=== PATIENT | female | born 1955 | race Caucasian/White ===

== ENCOUNTER 2020-05-31 04:44 | Inpatient (IN) | payer MEDICARE, MEDICAID ==
[~2020-05-31] VITALS: Ht 167.6 cm; Wt 51.1 kg
[2020-05-31] VITALS (9 sets, daily range): BP systolic 130–190; BP diastolic 65–90
[2020-05-31 05:31] LABS: BASO % 0.4 % (0.0-1.0); EOS % 0.1 % (0.0-3.0); HEMATOCRIT 46.1 % (36.0-47.0); HEMOGLOBIN 15.6 g/dl (12.0-15.5); LYMPH # 1.5 10^3/uL (1.5-5.0); LYMPH % 14.3 % (24.0-44.0); MEAN CORPUSCULAR HEMOGLOBIN 29.1 pg (27.0-33.0); MEAN CORPUSCULAR HGB CONC 33.8 g/dl (32.0-36.5); MONO # 0.5 10^3/uL (0.0-0.8); MONO % 4.4 % (0.0-5.0); NEUTROPHILS # 8.5 10^3/uL (1.5-8.5); NEUTROPHILS % 80.5 % (36.0-66.0); PLATELET COUNT, AUTOMATED 316 10^3/uL (150-450); RED BLOOD COUNT 5.36 10^6/uL (4.00-5.40); WHITE BLOOD COUNT 10.5 10^3/uL (4.0-10.0)
[2020-05-31 05:58] LABS: ALBUMIN 3.7 GM/DL (3.2-5.2); ALT/SGPT 28 U/L (12-78); BILIRUBIN,DIRECT 0.2 MG/DL (0.0-0.2); BILIRUBIN,TOTAL 0.6 MG/DL (0.2-1.0); BLOOD UREA NITROGEN 11 MG/DL (7-18); CALCIUM LEVEL 9.2 MG/DL (8.8-10.2); CARBON DIOXIDE LEVEL 22 MEQ/L (21-32); CHLORIDE LEVEL 105 MEQ/L (98-107); CREATININE FOR GFR 0.91 MG/DL (0.55-1.30); GLOMERULAR FILTRATION RATE > 60.0 (>45); GLUCOSE, FASTING 146 MG/DL (70-100); LIPASE 74 U/L (73-393); POTASSIUM SERUM 3.6 MEQ/L (3.5-5.1); SODIUM LEVEL 132 MEQ/L (136-145); TOTAL PROTEIN 7.8 GM/DL (6.4-8.2)
[2020-05-31] MEDS ORDERED: MORPHINE 4 MG/ML 1ML VIAL/SYRINGE (J2270) IV PRN (06:00)
[2020-05-31] MEDS ORDERED: ONDANSETRON 4MG/2ML VIAL IV ONE (06:00)
[2020-05-31] MEDS ORDERED: GASTROGRAFIN SOLUTION 30ML (Q9963) As Ordered ONE (06:19)
[2020-05-31] MEDS: GASTROGRAFIN SOLUTION 30ML PO SCH ×2 (06:20→06:50)
[2020-05-31] MEDS ORDERED: LORazepam 2 MG/ML VIAL IV STA (06:24)
[2020-05-31] MEDS ORDERED: LORazepam 2 MG/ML VIAL As Ordered ONE (06:27)
[2020-05-31] MEDS ORDERED: ISOVUE-370 76% 100ML VIAL As Ordered ONE (07:57)
[2020-05-31] MEDS ORDERED: hydrALAZINE 20MG/ML 1ML VIAL (J0360 PER 20MG) IV STA (08:37)
[2020-05-31] MEDS ORDERED: ASPI81TA86 PO (09:46)
[2020-05-31] MEDS ORDERED: ASPIRIN 81 MG ENTERIC TAB PO PRN (10:00)
[2020-05-31] MEDS: amLODIPine 5 MG TAB PO SCH (14:09)
[2020-05-31] MEDS ORDERED: ceFAZolin SOD 2 GM in IV 1 EA IV ONE (16:00)
--- NOTE | 2020-05-31 16:04 | HPEPDOC ---
General Date of Admission May 31, 2020 at 09:09 Date of Service: May 31, 2020 Chief Complaint The patient is a 64-year-old female admitted with a reason for visit of Hydronephrosis. Source: Patient Exam Limitations: No limitations Timing/Duration: 1-3 hours Severity: Moderate Associated Symptoms: Weakness History of Present Illness Patient is a 64-year-old female with no past medical history presented to the ED with a chief complaint of left flank pain that started earlier in the day. she denied having similar symptoms before and this is her first episode. She reports pain to be continuous and non-radiating. no associated chest pain or shortness of breath. No fever nausea vomiting. She denied any symptoms of dysuria at home. no alleviating or worsening factors. ED course: CT abdomen and pelvis showed left hydronephrois with urethral stricture. Findings reviewed with Urology who recommended Lasix nephrogram with plans for likely stent placement. Patient was also found to be significantly hypertensive and One dose of hydralazine was given. Home Medications Scheduled PRN Aspirin (Aspir 81) 81 Mg Tablet.dr, 81 MG PO DAILY PRN for PAIN, (Reported) Allergies Coded Allergies: pentazocine (Verified Allergy, Intermediate, 05/31/20) PSYCHOTIC EPISODES Past Medical History Medical History no previous diagnosed conditions - no cardiac hx Surgical History none Family History Significant Family History: Noncontributory Social History * Smoker: current smoker, less than 1 pack/day Alcohol: sober Drugs: denies Recent Travel/Sick Contacts: Denies: Recent travel, Recent sick contacts A-FIB/CHADSVASC A-FIB History Current/History of A-Fib/PAF?: No Current PO Anticoag Therapy: No Review of Systems Constitutional: Denies: Chills, Fever, Night Sweats Eyes: Denies: Pain, Vision change ENT: Denies: Head Aches, Ear Pain, Dysphagia Skin: Denies: Rash, Lesions, Breakdown Pulmonary: Denies: Dyspnea, Cough Cardiovascular: Denies: Chest Pain, Palpitations, Orthopnea, Paroxysmal Noc. Dyspnea, Lt Headedness Gastrointestinal: Denies: Nausea, Vomiting, Abdominal Pain, Diarrhea Genitourinary: Denies: Dysuria, Frequency, Incontinence, Retention Hematologic: Denies: Bruising, Bleeding Excessively Musculoskeletal: Reports: Back Pain; Denies: Neck Pain, Joint Pain, Muscle Pain, Spasms Neurological: Denies: Weakness, Numbness, Change in speech, Confusion Psych: Reports: Mood Normal; Denies: Depression, Memory Issues Physical Examination General Exam: Positive: Alert, Cooperative, No Acute Distress Eye Exam: Positive: PERRLA, Conjunctiva & lids normal, EOMI; Negative: Sclera icteric ENT Exam: Positive: Atraumatic, Mucous membr. moist/pink, Pharynx Normal Neck Exam: Positive: Supple; Negative: JVD, thyromegaly Chest Exam: Positive: Clear to auscultation, Normal air movement Heart Exam: Positive: Rate Normal, Regular Rhythm, Normal S1, Normal S2; Negative: Murmurs, Rubs Telemetry: Positive: No significant arrhythmia Abdomen Exam: Positive: Normal bowel sounds, Soft; Negative: Tenderness, Hepatospenomegaly Extremity Exam: Positive: Normal pulses; Negative: Clubbing, Cyanosis, Edema Skin Exam: Positive: Nl turgor and temperature; Negative: Breakdown, Lesion Neuro Exam: Positive: Normal Gait, Normal Speech, Cranial Nerves 3-12 NL, Reflexes 2+ Psych Exam: Positive: Mental status NL, Mood NL, Oriented x 3 Vital Signs Vital Signs Date Time Temp Pulse Resp B/P (MAP) Pulse Ox O2 Delivery O2 Flow Rate FiO2 05/31/20 15:00 84 33 185/87 (119) 98 Room Air 05/31/20 14:30 98.0 Laboratory Data Labs 24H Laboratory Tests 2 05/31/20 05:24: Immature Granulocyte % (Auto) 0.3, Neutrophils (%) (Auto) 80.5H, Lymphocytes (%) (Auto) 14.3L, Monocytes (%) (Auto) 4.4, Eosinophils (%) (Auto) 0.1, Basophils (%) (Auto) 0.4, Neutrophils # (Auto) 8.5, Lymphocytes # (Auto) 1.5, Monocytes # (Auto) 0.5, Eosinophils # (Auto) 0.0, Basophils # (Auto) 0.0, Nucleated Red Blood Cells % (auto) 0.0, Anion Gap 5L, Glomerular Filtration Rate > 60.0, Ca lcium Level 9.2, Total Bilirubin 0.6, Direct Bilirubin 0.2, Aspartate Amino Transf (AST/SGOT) 30, Alanine Aminotransferase (ALT/SGPT) 28, Alkaline Phosphatase 105, Total Protein 7.8, Albumin 3.7, Albumin/Globulin Ratio 0.9L, Lipase 74 05/31/20 13:25: Coronavirus (COVID-19)(PCR) NEGATIVE 05/31/20 14:30: Urine Color STRAW, Urine Appearance CLEAR, Urine pH 7.0, Urine Specific [place] 1.030, Urine Protein 1+H, Urine Glucose (UA) NEGATIVE, Urine Ketones TRACEH, Urine Blood 1+H, Urine Nitrite NEGATIVE, Urine Bilirubin NEGATIVE, Urine Urobilinogen 0.2, Urine Leukocyte Esterase NEGATIVE, Urine WBC (Auto) 1, Urine RBC (Auto) 10H, Urine Hyaline Casts (Auto) 1, Urine Bacteria (Auto) NEGATIVE, Urine Squamous Epithelial Cells 1, Urine Mucus (Auto) SMALL, Urine Sperm (Auto) CBC/BMP Laboratory Tests 05/31/20 05:24 Plan / VTE VTE Prophylaxis Ordered?: Yes Plan Plan 1) left urethral stricture: - urology to place stent later today 2) Hypertensive Urgency - denied previous history. Will start on amlodipine 3) Leukocytosis - wbc 10.5, no urinary symptoms. UA negative - presuming reactive, on preop cefazolin 4) Hyponatremia - glucose 146. Appears hypovolemic. Will hydrate patient gently MALA SPEAR DO May 31, 2020 16:04
[2020-05-31] MEDS ORDERED: CONRAY-60 60% 50ML VIAL (Q9961) As Ordered ONE (16:35)
[2020-05-31] MEDS ORDERED: ceFAZolin 2 GM/D5W 50 ML IV BAG (J0690 PER 500MG) As Ordered ONE (16:57)
[2020-05-31] MEDS ORDERED: fentaNYL 100 MCG/2 ML INJECTION (J3010) As Ordered ONE (17:14)
[2020-05-31] MEDS ORDERED: ONDANSETRON 4MG/2ML VIAL As Ordered ONE (17:14)
[2020-05-31] MEDS ORDERED: MIDAZOLAM INJ 2MG/2ML VIAL (J2250 PER 1MG) As Ordered ONE (17:14)
[2020-05-31] MEDS ORDERED: propofoL 200 MG/20 ML VIAL As Ordered ONE (17:14)
[2020-05-31] MEDS ORDERED: LIDOCAINE 2% 100MG/5ML SDV (FOR ANES.) As Ordered ONE (17:14)
[2020-05-31] MEDS ORDERED: ONDANSETRON 4MG/2ML VIAL IV PRN ×2 (17:45→18:15)
[2020-05-31] MEDS ORDERED: LR 1,000 ML IV SCH ×2 (17:45→18:15)
[2020-05-31] MEDS ORDERED: fentaNYL 100 MCG/2 ML INJECTION (J3010) IV PRN ×2 (17:45→18:15)
[2020-05-31] MEDS ORDERED: LR 500 ML IV SCH (18:15)
[2020-05-31] MEDS: HEPARIN SOD (PORCINE) 5000UNITS/ML 1ML VIAL/SYRINGE SC SCH (20:14)
[2020-05-31] MEDS ORDERED: CALCIUM CARBONATE 500 MG CHEW U/D PO PRN (21:30)
[2020-05-31] MEDS ORDERED: IBUPROFEN 600MG TAB PO PRN (21:30)
[2020-06-01] VITALS (10 sets, daily range): BP systolic 122–150; BP diastolic 59–68
[2020-06-01 05:03] LABS: HEMATOCRIT 43.3 % (36.0-47.0); HEMOGLOBIN 14.9 g/dl (12.0-15.5); MEAN CORPUSCULAR HEMOGLOBIN 29.9 pg (27.0-33.0); MEAN CORPUSCULAR HGB CONC 34.4 g/dl (32.0-36.5); MEAN CORPUSCULAR VOLUME 86.8 fl (80.0-96.0); PLATELET COUNT, AUTOMATED 306 10^3/uL (150-450); RED BLOOD COUNT 4.99 10^6/uL (4.00-5.40); WHITE BLOOD COUNT 9.2 10^3/uL (4.0-10.0)
[2020-06-01 05:35] LABS: ALBUMIN 3.2 GM/DL (3.2-5.2); BILIRUBIN,TOTAL 0.7 MG/DL (0.2-1.0); CALCIUM LEVEL 9.5 MG/DL (8.8-10.2); GLOMERULAR FILTRATION RATE 59.1 (>45)
[2020-06-01] MEDS: HEPARIN SOD (PORCINE) 5000UNITS/ML 1ML VIAL/SYRINGE SC SCH (08:21)
[2020-06-01] MEDS: amLODIPine 5 MG TAB PO SCH (08:21)
[2020-06-01] MEDS ORDERED: ADULKIT XX (11:09)
[2020-06-01] MEDS ORDERED: AMLO1TAB24 PO (11:09)
--- NOTE | 2020-06-19 17:04 | ECGEPIP ---
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
--- NOTE | 2020-07-04 10:52 | REP ---
PYELOGRAM DATE: 05/31/2020. HISTORY: Left-sided stent placement. FLUOROSCOPY TIME: 26 seconds of fluoroscopy time is reported. FINDINGS: A single last image hold fluoroscopically obtained spot radiograph of the abdomen documents severe hydronephrosis of left ureter with contrast opacified dilated collecting system and renal pelvis. A left ureteral stent is noted. There is some contrast opacity in the right renal pelvis. A levoconvex scoliotic curve is seen in the lumbar spine. MTDD
--- NOTE | 2020-07-18 10:12 | RO ---
DATE OF OPERATION: 05/31/2020 PREOPERATIVE DIAGNOSIS: Left UPJ obstruction with hydronephrosis. POSTOPERATIVE DIAGNOSIS: Left UPJ obstruction with hydronephrosis. PROCEDURE: Cystoscopy, left retrograde pyelogram, double-J insertion. SURGEON: Darien Crabtree MD DROP BOARD WORKER: None ANESTHESIA: MAC. INDICATION FOR OPERATION: This is a 64-year-old white female who presented to the emergency room with severe left flank pain. A CT scan showed significant left hydronephrosis with UPJ obstruction. She is therefore brought to the operating room for stent insertion. DESCRIPTION OF OPERATION: The patient was placed on the table in the supine position, given MACS anesthesia, placed in lithotomy position, prepped with Betadine paint, draped in an aseptic manner and timeout was performed. A 22 Tongan cystoscope was then inserted into the meatus and advanced under direct vision of a 30 degree lens to the bladder. The bladder mucosa appeared helen. She did have a cystocele. The left ureteral orifice was then catheterized with a 5 Tongan open-ended Pollack catheter and retrograde injection of 10 cc of Conray showed the patient had a left UPJ obstruction. She also still had a significant amount of contrast in the left renal pelvis from a procedure hours before. A Pollack catheter was then passed over the wire and urine was collected for culture. The Pollack was then removed after replacing the wire and a 5 Tongan double-J stent was stent was then passed over the wire to the renal pelvis where it curled well and the wire was removed. The bladder end also curled well. The bladder was then drained. The cystoscope was removed and the patient was awakened and sent to recovery room in stable condition, having tolerated the procedure well. She will need a robotic left pyeloplasty. COMPLICATIONS: None ESTIMATED BLOOD LOSS: None SPECIMENS: None other than urine for culture. [facility]
== END 2020-06-01 12:14 | disposition home or self-care (01) | DRG 660 ==
LOC: M ED 04:44 → M ED INP 09:09 → ENRESERV 12:49 → M ICU 14:27 → ENRESERV 17:46
PROVIDERS: ADMIT Internal Medicine; ATTEND Internal Medicine
PROC: 0T778DZ Dilation of Left Ureter with Intraluminal Device, Via Natural or Artificial Opening Endoscopic (ICD-10-PCS; principal; 2020-05-31 13:51)
DX: N13.0 Hydronephrosis with ureteropelvic junction obstruction (principal); E87.1 Hypo-osmolality and hyponatremia; I16.0 Hypertensive urgency; Z79.82 Long term (current) use of aspirin; Z88.8 Allergy status to other drugs, medicaments and biological substances; F17.200 Nicotine dependence, unspecified, uncomplicated; D72.829 Elevated white blood cell count, unspecified

== ENCOUNTER 2020-07-02 09:00 | Inpatient (IN) | payer MEDICARE, MEDICAID ==
[~2020-07-02] VITALS: Ht 167.6 cm; Wt 50.3 kg
[~2020-07-02 09:00] MED LIST: ADULKIT XX; AMLO1TAB24 PO; ASPI81TA86 PO
[2020-07-17] VITALS (8 sets, daily range): BP systolic 98–117; BP diastolic 53–72
[2020-07-17] MEDS ORDERED: LR 1,000 ML IV ONE (06:30)
[2020-07-17] MEDS ORDERED: ceFAZolin SOD 2 GM in IV 1 EA IV ONE (06:30)
[2020-07-17] MEDS ORDERED: AMLO25TA PO (07:46)
[2020-07-17] MEDS ORDERED: BUPIVACAINE HCL 0.25% 30ML VIAL As Ordered ONE (08:06)
[2020-07-17] MEDS ORDERED: LIDOCAINE 1% SDV 30ML VIAL As Ordered ONE (08:06)
[2020-07-17] MEDS ORDERED: CONRAY-60 60% 50ML VIAL (Q9961) As Ordered ONE (08:06)
[2020-07-17] MEDS ORDERED: LIDOCAINE 2% 100MG/5ML SDV (FOR ANES.) As Ordered ONE (08:08)
[2020-07-17] MEDS ORDERED: MIDAZOLAM INJ 2MG/2ML VIAL (J2250 PER 1MG) As Ordered ONE (08:08)
[2020-07-17] MEDS ORDERED: ROCURONIUM BROMIDE 50 MG/5 ML VIAL As Ordered ONE ×2 (08:08→09:56)
[2020-07-17] MEDS ORDERED: fentaNYL 250 MCG/5 ML INJECTION (J3010) As Ordered ONE (08:08)
[2020-07-17] MEDS ORDERED: propofoL 200 MG/20 ML VIAL As Ordered ONE (08:08)
[2020-07-17] MEDS ORDERED: LACRILUBE (AKWA TEARS) OPHTH OINT 3.5 GM As Ordered ONE (08:19)
[2020-07-17] MEDS ORDERED: MORPHINE 2 MG/ML 1ML VIAL (J2270) IV PRN (08:45)
[2020-07-17] MEDS ORDERED: ACETAMINOPHEN TAB 650MG DOSE (2X325MG) PO PRN (08:45)
[2020-07-17] MEDS ORDERED: PERCOCET 5MG/325MG TAB PO PRN ×2 (08:45)
[2020-07-17] MEDS ORDERED: ONDANSETRON 4MG/2ML VIAL IV PRN ×2 (08:45→13:00)
[2020-07-17] MEDS ORDERED: dexameTHASONE 4 MG/ML 1ML VIAL (J1100 PER 1MG) As Ordered ONE (08:48)
[2020-07-17] MEDS ORDERED: PHENYLephrine HCL 500 MCG/5 ML (100MCG/ML) SYRINGE (J2370) As Ordered ONE ×2 (08:48→09:23)
[2020-07-17] MEDS ORDERED: ePHEDrine SULFATE 25 MG/5 ML(5MG/ML) SYRINGE As Ordered ONE (08:59)
[2020-07-17] MEDS ORDERED: HYDROmorphone HCL 2 MG/ML 1ML VIAL (J1170) As Ordered ONE (09:25)
[2020-07-17] MEDS ORDERED: PHENYLEPHRINE 10MG/ML 1ML VIAL (J2370 PER 1) As Ordered ONE ×2 (09:28→09:31)
[2020-07-17] MEDS ORDERED: METOCLOPRAMIDE INJ 10MG/2ML VIAL (J2765 PER 1) As Ordered ONE (09:29)
[2020-07-17] MEDS ORDERED: ACETAMINOPHEN 1000MG 100ML IV BTL (OFIRMEV) (J0131 PER 10MG) As Ordered ONE (09:50)
[2020-07-17] MEDS ORDERED: ONDANSETRON 4MG/2ML VIAL As Ordered ONE (09:50)
[2020-07-17] MEDS ORDERED: SUGAMMADEX SODIUM 500 MG/5 ML VIAL (BRIDION) As Ordered ONE (09:51)
[2020-07-17] MEDS ORDERED: LR 1,000 ML IV SCH (13:00)
[2020-07-17] MEDS ORDERED: fentaNYL 100 MCG/2 ML INJECTION (J3010) IV PRN (13:00)
[2020-07-17] MEDS ORDERED: oxyCODONE 5MG TAB PO PRN (13:00)
[2020-07-17 13:30] LABS: HEMATOCRIT 41.5 % (36.0-47.0); HEMOGLOBIN 13.5 g/dl (12.0-15.5); MEAN CORPUSCULAR HEMOGLOBIN 29.2 pg (27.0-33.0); MEAN CORPUSCULAR HGB CONC 32.5 g/dl (32.0-36.5); MEAN CORPUSCULAR VOLUME 89.6 fl (80.0-96.0); PLATELET COUNT, AUTOMATED 301 10^3/uL (150-450); RED BLOOD COUNT 4.63 10^6/uL (4.00-5.40); WHITE BLOOD COUNT 9.2 10^3/uL (4.0-10.0)
[2020-07-17] MEDS: NS 1,000 ML IV SCH (13:45)
[2020-07-17 14:03] LABS: BLOOD UREA NITROGEN 13 MG/DL (7-18); CALCIUM LEVEL 8.8 MG/DL (8.8-10.2); CARBON DIOXIDE LEVEL 24 MEQ/L (21-32); CHLORIDE LEVEL 107 MEQ/L (98-107); CREATININE FOR GFR 0.72 MG/DL (0.55-1.30); GLOMERULAR FILTRATION RATE > 60.0 (>45); GLUCOSE, FASTING 135 MG/DL (70-100); POTASSIUM SERUM 3.7 MEQ/L (3.5-5.1); SODIUM LEVEL 137 MEQ/L (136-145)
--- NOTE | 2020-07-17 15:42 | ROOPDOC ---
[facility] Report Of Operation Report of Operation DATE OF PROCEDURE: 07/17/20 PREPROCEDURE DIAGNOSES: Left Ureteropelvic Junction Obstruction. POSTPROCEDURE DIAGNOSES: Left Ureteropelvic Junction Obstruction. PROCEDURE: Left Robotic-assisted Laparoscopic Dismembered Pyeloplasty, Cystoscopy, Left Ureteral Stent Exchange, Left Retrograde Pyelogram with Intraoperative Interpretation of Images. SURGEON: Marisa Villegas MD METAL SPRAYER PROTECTIVE COATING: Yina Mao NP ANESTHESIA: General OPERATIVE INDICATIONS: This is a 64 year old female with symptomatic left ureteropelvic junction obstruction thought to be due to a crossing vessel. She is brought to the operating room today for treatment. DESCRIPTION OF PROCEDURE: The patient was brought to the operating room and general anesthesia was induced. Prophylactic antibiotics were infused. The patient was then prepped and draped in the usual sterile fashion in the dorsal lithotomy position. At this point a rigid cystoscope was inserted into the urethral meatus and advanced into the bladder. The previously placed left ureteral stent was grasped and withdrawn until the distal end was protruding from the urethral meatus. A guidewire was advanced up the stent into the left collecting system. The stent was then removed. A 5Fr open ended ureteral catheter was advanced over the wire into the left collecting system. The wire was removed and a retrograde pyelogram was performed. It was notable for moderate left hydronephrosis with no extravasation. The wire was then advanced back up the left collecting system and the ureteral catheter was removed. The wire was then utilized to advance a 7Fr x 22-32cm JJ ureteral stent into the left collecting system. The wire was removed and there were adequate curls of the stent in the left renal pelvis and the bladder. An 18Fr Sarmiento catheter was then placed under sterile conditions. The patient was then placed in the right lateral decubitus position. All pressure points were appropriately padded and an axillary roll was placed. She was secured to the table with tape. The patient was then prepped and draped in the usual sterile fashion. The initial incision was for an 8mm port in line with the 11th rib along the lateral rectus margin. A Veress needle was then utilized to achieve the pneumoperitoneum. An 8mm port was then placed in through this incision and through which the camera was inserted. There were no injuries from Veress needle placement or initial trocar placement. The remaining ports were then placed under vision. The left hand robotic port was placed along the costal margin in line with the camera port. Two right hand robotic ports were placed with one just inferior to the camera port, and the other between the anterior-superior iliac spine and the umbilicus. A 12mm assist ant port was placed in between the camera port and the more cephalad right hand robotic port. The robot was then docked. We started by dissecting the left colon and the spleen off of Gerota's fascia. At this point the left ureter was identified just off the lower pole of the kidney. It was carefully dissected toward the renal pelvis. Just prior to reaching the renal pelvis a small lower pole vein was identified coursing over the ureter. This appeared to be the cause of the ureteropelvic junction obstruction. The renal pelvis was then carefully dissected and then the ureter was transected at the level of the ureteropelvic junction. The previously placed ureteral stent was removed from the renal pelvis. At this point the ureter and renal pelvis were repositioned over the lower pole vein. The renal pelvis was then spatulated medially and the left ureter was spatulated laterally. The anastomosis was then performed with 2 separate #4-0 Monocryl suture in a running fashion. The stent was placed back in the renal pelvis prior to completing the anterior portion of the anastomosis. The anastomosis appeared watertight and was not under tension. Once this was completed we checked for hemostasis and then advanced a Sam Boyce drain into the abdomen through the lateral robotic port. The port was removed and the drain was positioned just medial to the kidney. The robot was then undocked after c onfirming hemostasis within the abdomen. A Gabe-Madeline fascial closure device was used to place #0 Vicryl free ties through the fascia of the statistical assistant port site. All ports were then removed under direct vision and there was no bleeding from any of the port sites. At this point, all the incisions were thoroughly irrigated. The previously placed #0 Vicryl free ties were tied down. We then closed the skin of each site using a running #4-0 subcuticular Monocryl stitch. The Sam Boyce drain was secured to the skin using #3-0 Ethilon suture. Local anesthetic was then applied to each incision and Dermabond was then applied and this marked the conclusion of the procedure. The patient was then taken out of the right lateral decubitus position, awakened from anesthesia and transported to the recovery room in stable condition. ESTIMATED BLOOD LOSS: 5 mL INTRAOPERATIVE COMPLICATIONS: None SPECIMENS: None PLAN: The patient will be admitted to the hospital postoperatively and will likely be discharged home within the next day or two. Her stent will be left in for 6 weeks. MARISA VILLEGAS MD Jul 17, 2020 14:59
[2020-07-17] MEDS: DOCUSATE SODIUM 100 MG CAP PO SCH ×2 (16:04→20:40)
[2020-07-17] MEDS: ceFAZolin SOD 1 GM in D5W MINI-BAG PLUS 50 ML IV SCH (16:04)
[2020-07-18] MEDS: ceFAZolin SOD 1 GM in D5W MINI-BAG PLUS 50 ML IV SCH (00:48)
[2020-07-18 02:00] VITALS: BP 151/84
[2020-07-18] MEDS: NS 1,000 ML IV SCH (03:15)
[2020-07-18 06:00] VITALS: BP 153/83
[2020-07-18] MEDS: HEPARIN SOD (PORCINE) 5000UNITS/ML 1ML VIAL/SYRINGE SC SCH ×2 (06:22→14:00)
[2020-07-18 06:46] LABS: HEMATOCRIT 37.9 % (36.0-47.0); HEMOGLOBIN 12.8 g/dl (12.0-15.5); MEAN CORPUSCULAR HEMOGLOBIN 29.6 pg (27.0-33.0); MEAN CORPUSCULAR HGB CONC 33.8 g/dl (32.0-36.5); MEAN CORPUSCULAR VOLUME 87.5 fl (80.0-96.0); PLATELET COUNT, AUTOMATED 277 10^3/uL (150-450); RED BLOOD COUNT 4.33 10^6/uL (4.00-5.40); WHITE BLOOD COUNT 9.9 10^3/uL (4.0-10.0)
[2020-07-18 07:21] LABS: BLOOD UREA NITROGEN 10 MG/DL (7-18); CALCIUM LEVEL 9.2 MG/DL (8.8-10.2); CARBON DIOXIDE LEVEL 25 MEQ/L (21-32); CHLORIDE LEVEL 106 MEQ/L (98-107); CREATININE FOR GFR 0.61 MG/DL (0.55-1.30); GLOMERULAR FILTRATION RATE > 60.0 (>45); GLUCOSE, FASTING 88 MG/DL (70-100); POTASSIUM SERUM 3.5 MEQ/L (3.5-5.1); SODIUM LEVEL 137 MEQ/L (136-145)
--- NOTE | 2020-07-18 07:53 | IPNPDOC ---
Subjective Review oF Systems Chief Complaint The patient is a 64-year-old female admitted with a reason for visit of Ureteropelvic Junction Obstruction. Events since Last Encounter No acute events o/n. Good pain control. No n/v. No f/c/ns. Objective Physical Examination General Exam: Alert, Cooperative, No Acute Distress ABDOMEN EXAM: Soft, Tenderness (minimal), Other (incisions clean/dry/intact; JUANA w/ serous output) Skin Exam: Nl turgor and temperature Neuro Exam: Normal Speech Psych Exam: Mental status NL, Mood NL Other physical findings catheter draining clear yellow urine Vital Signs/I&O Vital Signs Date Time Temp Pulse Resp B/P (MAP) Pulse Ox O2 Delivery O2 Flow Rate FiO2 07/18/20 06:00 98.2 82 18 153/83 (106) 100 Room Air I&O- Last 24 Hours up to 6 AM 07/18/20 06:00 Intake Total 1713 ml Output Total 970 ml Balance 743 ml Laboratory Data Labs 24H Laboratory Tests 2 07/17/20 13:07: Nucleated Red Blood Cells % (auto) 0.0, Anion Gap 6L, Glomerular Filtration Rate > 60.0, Calcium Level 8.8 07/18/20 06:11: Nucleated Red Blood Cells % (auto) 0.0, Anion Gap 6L, Glomerular Filtration Rate > 60.0, Calcium Level 9.2 CBC/BMP Laboratory Tests 07/17/20 13:07 07/18/20 06:11 Assessment/Plan Date Seen The patient was seen on 07/18/20. Patient Summary This is a 64 y/o F POD1 s/p L robotic dismembered pyeloplasty, cystoscopy, and L stent exchange. She is doing well. Hb 13.5. Cr 0.6. Good UOP. Minimal JUANA output. Plan/VTE VTE Prophylaxis Ordered?: Yes VTE Exclusion Mechanical Proph: N/A:VTE Prophy Ordered VTE Exclusion Pharmacological: N/A:VTE Prophy Ordered Plan/Urinary Catheter Urinary Catheter: D/C Sarmiento Plan - d/c Sarmiento - d/c IVF - strict I/Os - continue home meds - percocet prn pain - ambulate - SCDs when in bed - SQH - incentive spirometry - regular diet - likely discharge home later today (will remove JUANA prior to discharge if output remains low) MARISA VILLEGAS MD Jul 18, 2020 07:53
[2020-07-18 08:40] VITALS: BP 122/70
[2020-07-18 09:36] VITALS: BP 115/78
[2020-07-18] MEDS: DOCUSATE SODIUM 100 MG CAP PO SCH (09:36)
[2020-07-18 10:00] VITALS: BP 112/78
[2020-07-18] MEDS ORDERED: PERCOCET PO (13:01)
[2020-07-18] MEDS ORDERED: DOCU100C16 PO (13:01)
[2020-07-18 14:00] VITALS: BP 113/77
--- NOTE | 2020-07-22 15:15 | REP ---
RETROGRADE PYELOGRAM: 2-VIEWS HISTORY: Left stent exchange. FLUROSCOPY TIME: 13 seconds reported. FINDINGS: A sequence of two avxg-slyqo-fymc fluoroscopically obtained spot radiographs of the left abdomen document contrast in the renal collecting system and a double pigtail left ureteral stent. MTDD
--- NOTE | 2020-07-23 09:29 | DS ---
DATE OF ADMISSION: 07/17/2020 DATE OF DISCHARGE: 07/18/2020 ADMISSION DIAGNOSIS: Left ureteropelvic junction obstruction. DISCHARGE DIAGNOSIS: Left ureteropelvic junction obstruction. ADMITTING PHYSICIAN: Dr. Darryl Yeboah DISCHARGING PHYSICIAN: Dr. Darryl Yeboah PROCEDURES PERFORMED: Left robotic-assisted laparoscopic dismembered pyeloplasty, cystoscopy, left ureteral stent exchange. HISTORY OF PRESENT ILLNESS: This is a 64-year-old female who was diagnosed with a left ureteropelvic junction obstruction and was brought to the operating room on 07/17/2020 for treatment. She was admitted to the hospital postoperatively. HOSPITALIZATION COURSE: The patient was admitted to the hospital after undergoing surgery on 07/17/2020. Her postoperative course was unremarkable. On postoperative day #1, all of her lab work was within normal limits. Specifically her hemoglobin level was stable at 12.8. Her serum creatinine was stable at 0.61. All of her vital signs remained within normal limits. She had excellent urine output during her hospital stay. Her Sarmiento catheter was removed, and she voided without any difficulty. She had normal amounts of output from her Sam-Boyce drain, and therefore that was removed on postoperative day #1. She was ambulating well by end of postoperative day #1 and had excellent pain control, not requiring any pain medications. She was tolerating a regular diet. She was therefore deemed ready for discharge home. She was discharged home with a plan for her to followup in neurology clinic in approximately 1 week for a postoperative visit. She has a left ureteral stent in place that we will leave in for 6 weeks and then remove it at that time. EARLE
== END 2020-07-18 17:10 | disposition home or self-care (01) | DRG 661 ==
LOC: M OR 07-17 07:19 → M MSPAV 07-17 13:45
PROVIDERS: ADMIT Urology; ATTEND Urology
PROC: 0T29XYZ Change Other Device in Ureter, External Approach (ICD-10-PCS; 2020-07-17)
PROC: 0TQ44ZZ Repair Left Kidney Pelvis, Percutaneous Endoscopic Approach (ICD-10-PCS; principal; 2020-07-17 08:30)
DX: N13.5 Crossing vessel and stricture of ureter without hydronephrosis (principal)

== ENCOUNTER → 2020-07-12 | Outpatient (CLI) | payer MEDICAID, SELFPAY ==
[~2020-07-12] MED LIST changes: +AMLO25TA PO; +DOCU100C16 PO; +PERCOCET PO
== END ==
LOC: M LABSMTC 09:59
PROVIDERS: ATTEND Anesthesiology
DX: Z01.812 Encounter for preprocedural laboratory examination (principal); Z20.828 Contact with and (suspected) exposure to other viral communicable diseases
CPT/HCPCS: C9803; U0003

== ENCOUNTER → 2020-07-12 | Outpatient (CLI) | payer MEDICAID, SELFPAY ==
--- NOTE | 2020-07-16 18:29 | REP ---
CHEST X-RAY: 2-VIEWS HISTORY: Hydronephrosis with ureteral stricture. COMPARISON: Chest x-ray 06/03/2006. FINDINGS: There is a [id number]-tv-izclfxbvpv levoconvex thoracolumbar rotoscoliotic curve. The curve is much more prominent than on the 2006 prior study. The lungs are somewhat hyperinflated, but free of infiltrate. Pleural angles are sharp. The heart is not enlarged. Pulmonary vasculature is not increased. IMPRESSION: Hyperinflation. Otherwise no acute disease. Thoracolumbar scoliosis. MTDD
== END ==
LOC: M RAD 10:21
PROVIDERS: ATTEND Nurse Practitioner Women's Health
DX: Z01.812 Encounter for preprocedural laboratory examination (principal); N13.1 Hydronephrosis with ureteral stricture, not elsewhere classified; M41.85 Other forms of scoliosis, thoracolumbar region

== ENCOUNTER → 2020-09-30 | Outpatient (CLI) | payer MEDICAID, SELFPAY ==
--- NOTE | 2020-09-30 11:16 | REP ---
INDICATION: UPJ OBSTRUCTION COMPARISON: CT dated 05/31/2020 TECHNIQUE: Real time joshua scale ultrasound examination using curved array transducer. FINDINGS: The bilateral kidneys are normal in contour, size, echogenicity, and reniform shape without hydronephrosis, nephrolithiasis, cystic or renal mass lesion. Right kidney measures 10.2 x 3.9 x 4.3 cm. Left kidney measures 10.3 x 2.8 x 3.3 cm. Previously noted left-sided hydronephrosis has resolved. IMPRESSION: Normal renal ultrasound. No hydronephrosis. <Electronically signed by Laz Ortega > 09/30/20 [id number]
== END ==
LOC: M RAD 10:07
PROVIDERS: ATTEND Urology
DX: N13.5 Crossing vessel and stricture of ureter without hydronephrosis (principal)

== ENCOUNTER → 2020-12-23 | Outpatient (CLI) | payer MEDICARE, MEDICAID ==
--- NOTE | 2020-12-23 17:13 | REP ---
INDICATION: PAIN COMPARISON: None. TECHNIQUE: There are four views FINDINGS: There is diffuse demineralization. There is surgical fusion of the great toe TMT articulation with 2 surgical screws are crossing the joint line. There is no fracture or dislocation. The joint spaces are otherwise unremarkable. There are no lytic, blastic or destructive changes. There are no calcifications. IMPRESSION: Demineralization. Surgical fusion of the great toe TMT articulation. No fracture or dislocation. <Electronically signed by Ernie Garsia > 12/23/20 [id number]
== END ==
LOC: M WUC 13:24
PROVIDERS: ATTEND Physician Assistant
DX: M79.672 Pain in left foot (principal)

== ENCOUNTER 2020-12-28 17:13 | Emergency (ER) | payer MEDICAID, MEDICARE ==
[~2020-12-28] VITALS: Ht 167.6 cm; Wt 53.6 kg
[2020-12-28 18:03] LABS: BASO % 0.4 % (0.0-1.0); EOS # 0.1 10^3/uL (0.0-0.5); EOS % 0.5 % (0.0-3.0); HEMATOCRIT 41.7 % (36.0-47.0); HEMOGLOBIN 14.1 g/dl (12.0-15.5); LYMPH # 2.4 10^3/uL (1.5-5.0); LYMPH % 22.3 % (24.0-44.0); MEAN CORPUSCULAR HGB CONC 33.8 g/dl (32.0-36.5); MEAN CORPUSCULAR VOLUME 88.7 fl (80.0-96.0); MONO # 0.9 10^3/uL (0.0-0.8); MONO % 7.9 % (2.0-8.0); NEUTROPHILS # 7.5 10^3/uL (1.5-8.5); NEUTROPHILS % 68.6 % (36.0-66.0); PLATELET COUNT, AUTOMATED 397 10^3/uL (150-450); WHITE BLOOD COUNT 10.9 10^3/uL (4.0-10.0)
[2020-12-28 18:23] LABS: ERYTHROCYTE SEDIMENTATION RATE 33 mm/hr (0-30)
[2020-12-28 18:29] LABS: BLOOD UREA NITROGEN 16 MG/DL (7-18); C REACTIVE PROTEIN QUANTITATIV 0.77 MG/DL (0.00-0.30); CARBON DIOXIDE LEVEL 26 MEQ/L (21-32); CHLORIDE LEVEL 107 MEQ/L (98-107); CREATININE FOR GFR 0.72 MG/DL (0.55-1.30); GLOMERULAR FILTRATION RATE > 60.0 (>45); GLUCOSE, FASTING 103 MG/DL (70-100); SODIUM LEVEL 137 MEQ/L (136-145)
[2020-12-28 19:21] LABS: RSV AMPLIFICATION NEGATIVE (NEGATIVE)
[2020-12-28] MEDS ORDERED: MORPHINE 4 MG/ML 1ML VIAL/SYRINGE (J2270) IV ONE (21:10)
[2020-12-28 22:39] VITALS: BP 155/98
== END 2020-12-28 22:44 | disposition short-term general hospital (02) ==
LOC: M ED 17:13
DX: M62.272 Nontraumatic ischemic infarction of muscle, left ankle and foot (principal); I10 Essential (primary) hypertension; K21.9 Gastro-esophageal reflux disease without esophagitis; G43.909 Migraine, unspecified, not intractable, without status migrainosus; F17.200 Nicotine dependence, unspecified, uncomplicated; Z79.82 Long term (current) use of aspirin; Z79.899 Other long term (current) drug therapy; Z88.8 Allergy status to other drugs, medicaments and biological substances
CPT/HCPCS: 80048; 83605; 85025; 85652; 86140; 87040; 87631; 96374; 99284; J2270

== ENCOUNTER 2021-01-10 18:08 | Emergency (ER) | payer MEDICARE ==
[~2021-01-10] VITALS: Ht 167.6 cm; Wt 53.6 kg
[2021-01-10] MEDS ORDERED: PIPERACILLIN/TAZOBACTAM SOD 4.5 GM in D5W MINI-BAG PLUS 50 ML IV ONE (18:55)
[2021-01-10] MEDS ORDERED: BOOSTRIX/ADACEL VACCINE (DIPHTH/PERTUSS/ACELL/TETANUS) 0.5ML SYR IM ONE (19:00)
[2021-01-10 19:33] LABS: BASO # 0.1 10^3/uL (0.0-0.2); BASO % 0.8 % (0.0-1.0); EOS # 0.6 10^3/uL (0.0-0.5); EOS % 5.3 % (0.0-3.0); HEMOGLOBIN 12.1 g/dl (12.0-15.5); LYMPH # 2.6 10^3/uL (1.5-5.0); MEAN CORPUSCULAR HGB CONC 32.7 g/dl (32.0-36.5); MEAN CORPUSCULAR VOLUME 91.8 fl (80.0-96.0); MONO # 0.9 10^3/uL (0.0-0.8); MONO % 8.5 % (2.0-8.0); NEUTROPHILS # 6.2 10^3/uL (1.5-8.5); PLATELET COUNT, AUTOMATED 602 10^3/uL (150-450); RED BLOOD COUNT 4.03 10^6/uL (4.00-5.40); WHITE BLOOD COUNT 10.3 10^3/uL (4.0-10.0)
[2021-01-10 19:50] LABS: ERYTHROCYTE SEDIMENTATION RATE 58 mm/hr (0-30)
[2021-01-10 20:11] LABS: ALBUMIN 2.8 GM/DL (3.2-5.2); ALT/SGPT 29 U/L (12-78); BILIRUBIN,DIRECT 0.1 MG/DL (0.0-0.2); BILIRUBIN,TOTAL 0.2 MG/DL (0.2-1.0); BLOOD UREA NITROGEN 14 MG/DL (7-18); C REACTIVE PROTEIN QUANTITATIV 1.18 MG/DL (0.00-0.30); CALCIUM LEVEL 8.4 MG/DL (8.8-10.2); CARBON DIOXIDE LEVEL 29 MEQ/L (21-32); CHLORIDE LEVEL 106 MEQ/L (98-107); CREATININE FOR GFR 0.75 MG/DL (0.55-1.30); GLOMERULAR FILTRATION RATE > 60.0 (>45); GLUCOSE, FASTING 88 MG/DL (70-100); POTASSIUM SERUM 3.5 MEQ/L (3.5-5.1); SODIUM LEVEL 140 MEQ/L (136-145); TOTAL PROTEIN 6.7 GM/DL (6.4-8.2)
[2021-01-10 20:15] LABS: RSV AMPLIFICATION NEGATIVE (NEGATIVE)
[2021-01-10] MEDS ORDERED: VANCOMYCIN HCL 1,000 MG, VIAL MATE ADAPTER 1 EACH in NS 250 ML IV ONE (20:25)
--- NOTE | 2021-01-10 20:25 | REPVR ---
PROCEDURE INFORMATION: Exam: XR Chest Exam date and time: 01/10/2021 7:57 PM Age: 65 years old Clinical indication: Other: Left RO osteo TECHNIQUE: Imaging protocol: XR of the chest Views: 1 view. COMPARISON: NC Chest, 2 view PA, Lat 07/12/2020 10:42 AM FINDINGS: Lungs: Well inflated lungs consistent with COPD. Lungs otherwise clear. Pleural spaces: Unremarkable. No pleural effusion. No pneumothorax. Heart/Mediastinum: Unremarkable. No cardiomegaly. Bones/joints: Dextroscoliosis. IMPRESSION: 1. Well inflated lungs consistent with COPD. 2. No acute findings. Electronically signed by: Venancio Rosado On 01/10/2021 20:25:02 PM
--- NOTE | 2021-01-10 20:25 | REPVR ---
PROCEDURE INFORMATION: Exam: XR Left Foot Exam date and time: 01/10/2021 7:57 PM Age: 65 years old Clinical indication: Other: Left RO osteo TECHNIQUE: Imaging protocol: XR Left foot. Views: 1 or 2 views. COMPARISON: CR FOOT COMPLETE 12/23/2020 1:42 PM FINDINGS: Bones/joints: Status post ORIF tarsonavicular joint. Osteoporosis. Otherwise unremarkable. Soft tissues: Normal. IMPRESSION: No acute findings. Electronically signed by: Venancio Rosado On 01/10/2021 20:24:28 PM
[2021-01-10 22:00] VITALS: BP 167/75
--- NOTE | 2021-01-11 06:26 | ECGEPIP ---
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
== END 2021-01-10 22:04 | disposition short-term general hospital (02) ==
LOC: M ED 18:08
DX: I96 Gangrene, not elsewhere classified (principal); L02.612 Cutaneous abscess of left foot; L03.116 Cellulitis of left lower limb; I10 Essential (primary) hypertension; Z87.891 Personal history of nicotine dependence; Z79.82 Long term (current) use of aspirin; Z79.899 Other long term (current) drug therapy; Z88.8 Allergy status to other drugs, medicaments and biological substances
CPT/HCPCS: 71045; 73620; 80048; 80076; 83605; 85025; 85652; 86140; 87040; 87070; 87077; 87186; 87631; 90471; 90715; 93005; 93041; 96365; 96367; 99285; J2543; J3370

== ENCOUNTER → 2021-05-20 | Outpatient (CLI) | payer MEDICARE, MEDICAID ==
--- NOTE | 2021-05-20 15:48 | REP ---
INDICATION: URETERAL PELVIC JUNCTION OBST S/P LT PYLOPALSTY. COMPARISON: 09/30/2020 FINDINGS: The kidneys show normal size, shape, and echo pattern without hydronephrosis, cyst, mass or calculus. The right kidney measures 10.4 x 5.1 x 4.7 cm. The left kidney measures 10.5 x 3.8 x 3.3 cm. There has been no interval change when compared with the previous study. IMPRESSION: Normal renal ultrasound. No interval change compared with the previous study. <Electronically signed by Eduar Herrera > 05/20/21 [id number]
== END ==
LOC: M RAD 11:08
PROVIDERS: ATTEND Urology
DX: N13.5 Crossing vessel and stricture of ureter without hydronephrosis (principal)

== ENCOUNTER → 2022-02-17 | Outpatient (CLI) | payer MEDICARE, MEDICAID ==
[2022-02-17 15:14] LABS: BASO % 0.6 % (0.0-1.0); EOS # 0.1 10^3/uL (0.0-0.5); EOS % 1.1 % (0.0-3.0); HEMATOCRIT 43.5 % (36.0-47.0); LYMPH # 2.4 10^3/uL (1.5-5.0); LYMPH % 36.4 % (24.0-44.0); MEAN CORPUSCULAR HEMOGLOBIN 28.2 pg (27.0-33.0); MEAN CORPUSCULAR HGB CONC 32.2 g/dl (32.0-36.5); MEAN CORPUSCULAR VOLUME 87.7 fl (80.0-96.0); MONO # 0.7 10^3/uL (0.0-0.8); NEUTROPHILS # 3.4 10^3/uL (1.5-8.5); NEUTROPHILS % 51.7 % (36.0-66.0); PLATELET COUNT, AUTOMATED 291 10^3/uL (150-450); RED BLOOD COUNT 4.96 10^6/uL (4.00-5.40); WHITE BLOOD COUNT 6.6 10^3/uL (4.0-10.0)
[2022-02-17 15:37] LABS: ALBUMIN 3.6 GM/DL (3.2-5.2); ALT/SGPT 48 U/L (12-78); BILIRUBIN,TOTAL 0.6 MG/DL (0.2-1.0); BLOOD UREA NITROGEN 15 MG/DL (7-18); CALCIUM LEVEL 9.8 MG/DL (8.8-10.2); CARBON DIOXIDE LEVEL 27 MEQ/L (21-32); CHLORIDE LEVEL 105 MEQ/L (98-107); CHOLESTEROL LEVEL 122 MG/DL (<200); CHOLESTEROL RISK RATIO 4.066 (<5); CREATININE FOR GFR 0.86 MG/DL (0.55-1.30); GLOMERULAR FILTRATION RATE > 60.0 (>45); GLUCOSE, FASTING 80 MG/DL (70-100); HDL CHOLESTEROL 30 MG/DL (>40); LDL CHOLESTEROL 72 MG/DL (<100); NON-HDL-C 92 MG/DL; POTASSIUM SERUM 4.3 MEQ/L (3.5-5.1); SODIUM LEVEL 138 MEQ/L (136-145); TOTAL PROTEIN 7.3 GM/DL (6.4-8.2); TRIGLYCERIDES LEVEL 102 MG/DL (<150)
[2022-02-17 15:46] LABS: MALB URINE SIEMENS 9.9 MG/L; MAU/CREAT RATIO 7.2 MCG/MG (0.0-30.0)
== END ==
LOC: M PLALAB 11:09
PROVIDERS: ATTEND Physician Assistant
DX: I10 Essential (primary) hypertension (principal); E78.5 Hyperlipidemia, unspecified; R19.8 Other specified symptoms and signs involving the digestive system and abdomen; R10.31 Right lower quadrant pain

== ENCOUNTER → 2022-02-19 | Outpatient (CLI) | payer MEDICARE, MEDICAID ==
[~2022-02-19] MED LIST changes: +GASTROGRAFIN SOLUTION 30ML (Q9963) As Ordered ONE; +ISOVUE-370 76% 100ML VIAL As Ordered ONE
== END ==
LOC: M RAD 12:33
PROVIDERS: ATTEND Physician Assistant
DX: R19.8 Other specified symptoms and signs involving the digestive system and abdomen (principal); R10.31 Right lower quadrant pain
CPT/HCPCS: 74177; Q9963; Q9967

== ENCOUNTER → 2022-04-08 | Outpatient (CLI) | payer MEDICARE, MEDICAID ==
[~2022-04-08] MED LIST changes: -GASTROGRAFIN SOLUTION 30ML (Q9963) As Ordered ONE; -ISOVUE-370 76% 100ML VIAL As Ordered ONE
== END ==
LOC: M RAD 11:43
PROVIDERS: ATTEND Physician Assistant
DX: M41.9 Scoliosis, unspecified (principal); R19.8 Other specified symptoms and signs involving the digestive system and abdomen; R10.31 Right lower quadrant pain; M85.88 Other specified disorders of bone density and structure, other site

== ENCOUNTER → 2022-05-01 | Outpatient (CLI) | payer MEDICARE, MEDICAID ==
[~2022-05-01] MED LIST changes: +ATOR40TA75 PO; +ECOT81TA5 PO; +OMEP-173 PO
== END ==
LOC: M PLAIMG 10:19
PROVIDERS: ATTEND Physician Assistant
DX: M25.551 Pain in right hip (principal); M25.552 Pain in left hip

== ENCOUNTER → 2022-05-01 | Outpatient (CLI) | payer MEDICARE, MEDICAID | LOC: M WHC 08:41 | PROVIDERS: ATTEND Physician Assistant | DX: M81.0 Age-related osteoporosis without current pathological fracture (principal); M85.851 Other specified disorders of bone density and structure, right thigh; M85.88 Other specified disorders of bone density and structure, other site; Z13.820 Encounter for screening for osteoporosis; M25.551 Pain in right hip; M25.552 Pain in left hip ==

== ENCOUNTER → 2022-05-06 | Outpatient (CLI) | payer MEDICARE, MEDICAID | LOC: M LABSMTC 10:11 | PROVIDERS: ATTEND Anesthesiology | DX: Z01.812 Encounter for preprocedural laboratory examination (principal); Z20.822 Contact with and (suspected) exposure to COVID-19 ==

== ENCOUNTER 2022-05-07 09:14 | Day surgery (SDC) | payer MEDICARE, MEDICAID ==
[~2022-05-07] VITALS: Ht 154.9 cm; Wt 65.8 kg
[~2022-05-07 09:14] MED LIST changes: +LIDOCAINE 2% 100MG/5ML SDV (FOR ANES.) As Ordered ONE; +NS 1,000 ML IV ONE; +fentaNYL 100 MCG/2 ML INJECTION As Ordered ONE; +propofoL 500 MG/50 ML VIAL As Ordered ONE
[2022-05-07] MEDS ORDERED: NS 1,000 ML IV SCH (09:25)
[2022-05-07 11:23] VITALS: BP 131/90
== END 2022-05-07 11:32 | disposition home or self-care (01) ==
LOC: M OPP 09:14
PROVIDERS: ATTEND Surgery
DX: Z12.11 Encounter for screening for malignant neoplasm of colon (principal); D12.6 Benign neoplasm of colon, unspecified; K57.30 Diverticulosis of large intestine without perforation or abscess without bleeding; K44.9 Diaphragmatic hernia without obstruction or gangrene; K21.00 Gastro-esophageal reflux disease with esophagitis, without bleeding; E78.00 Pure hypercholesterolemia, unspecified; Z79.02 Long term (current) use of antithrombotics/antiplatelets; Z79.82 Long term (current) use of aspirin; Z88.5 Allergy status to narcotic agent; Z86.19 Personal history of other infectious and parasitic diseases; Z86.11 Personal history of tuberculosis; Z87.891 Personal history of nicotine dependence
CPT/HCPCS: 43239; 45385; 88305; J3010

== ENCOUNTER → 2022-06-10 | Outpatient (RCR) | payer MEDICARE, MEDICAID ==
[~2022-06-10] MED LIST changes: -LIDOCAINE 2% 100MG/5ML SDV (FOR ANES.) As Ordered ONE; -NS 1,000 ML IV ONE; -fentaNYL 100 MCG/2 ML INJECTION As Ordered ONE; -propofoL 500 MG/50 ML VIAL As Ordered ONE
== END ==
LOC: M PT 05-20 12:06
PROVIDERS: ATTEND Physician Assistant
DX: M41.9 Scoliosis, unspecified (principal)

== ENCOUNTER → 2022-06-11 | Outpatient (CLI) | payer MEDICARE, MEDICAID | LOC: M SOG 15:45 | PROVIDERS: ATTEND Orthopaedic Surgery | DX: M41.86 Other forms of scoliosis, lumbar region (principal) ==

== ENCOUNTER 2022-07-07 10:38 | Outpatient (RCR) | payer MEDICARE, MEDICAID | END 2022-07-10 | LOC: M PT 10:38 | PROVIDERS: ATTEND Physician Assistant | DX: M41.9 Scoliosis, unspecified (principal) ==

== ENCOUNTER 2022-07-28 10:31 | Outpatient (RCR) | payer MEDICARE, MEDICAID | END 2022-08-10 | LOC: M PT 10:31 | PROVIDERS: ATTEND Physician Assistant | DX: M41.9 Scoliosis, unspecified (principal) ==

== ENCOUNTER → 2022-08-17 | Outpatient (CLI) | payer MEDICARE, MEDICAID | LOC: M RAD 10:32 | PROVIDERS: ATTEND Physician Assistant | DX: Z12.2 Encounter for screening for malignant neoplasm of respiratory organs (principal); Z87.891 Personal history of nicotine dependence; J98.4 Other disorders of lung ==

== ENCOUNTER → 2023-01-04 | Outpatient (CLI) | payer MEDICARE, MEDICAID ==
[2023-01-04 11:55] LABS: BASO # 0.1 10^3/uL (0.0-0.2); BASO % 0.6 % (0.0-1.0); EOS # 0.1 10^3/uL (0.0-0.5); EOS % 0.8 % (0.0-3.0); HEMATOCRIT 44.2 % (36.0-47.0); HEMOGLOBIN 14.3 g/dl (12.0-15.5); LYMPH # 2.4 10^3/uL (1.5-5.0); LYMPH % 27.3 % (24.0-44.0); MEAN CORPUSCULAR HEMOGLOBIN 28.4 pg (27.0-33.0); MEAN CORPUSCULAR HGB CONC 32.4 g/dl (32.0-36.5); MEAN CORPUSCULAR VOLUME 87.9 fl (80.0-96.0); MONO # 0.6 10^3/uL (0.0-0.8); MONO % 7.3 % (2.0-8.0); NEUTROPHILS # 5.5 10^3/uL (1.5-8.5); NEUTROPHILS % 63.8 % (36.0-66.0); PLATELET COUNT, AUTOMATED 278 10^3/uL (150-450); RED BLOOD COUNT 5.03 10^6/uL (4.00-5.40); WHITE BLOOD COUNT 8.7 10^3/uL (4.0-10.0)
[2023-01-04 12:36] LABS: ALBUMIN 3.3 G/DL (3.2-5.2); ALKALINE PHOSPHATASE 113 U/L (46-116); ALT/SGPT 41 U/L (7.0-40); AST/SGOT 44 U/L (<34); BILIRUBIN,TOTAL 0.6 MG/DL (0.3-1.2); BLOOD UREA NITROGEN 15 MG/DL (9-23); CARBON DIOXIDE LEVEL 26 MMOL/L (20-31); CHLORIDE LEVEL 108 MMOL/L (98-107); CHOLESTEROL LEVEL 117 MG/DL (<200); CHOLESTEROL RISK RATIO 3.28 (<5); CREATININE FOR GFR 0.74 MG/DL (0.55-1.30); FREE T4 0.94 NG/DL (0.89-1.76); GLOMERULAR FILTRATION RATE > 60.0 (>45); GLUCOSE, FASTING 84 MG/DL (74-106); HDL CHOLESTEROL 35.6 MG/DL (>40); NON-HDL-C 81.4 MG/DL; POTASSIUM SERUM 4.1 MMOL/L (3.5-5.1); SODIUM LEVEL 142 MMOL/L (136-145); THYROID STIMULATING HORMONE 1.698 uIU/ML (0.55-4.78); TOTAL 25(OH) VITAMIN D 16.4 NG/ML (20.0-100.0); TOTAL PROTEIN 6.6 G/DL (5.7-8.2); TRIGLYCERIDES LEVEL 77 MG/DL (<150)
[2023-01-04 12:59] LABS: HEMOGLOBIN A1c 5.5 % (4.0-6.0)
== END ==
LOC: M LAB 11:02
PROVIDERS: ATTEND Physician Assistant
DX: I10 Essential (primary) hypertension (principal); I73.1 Thromboangiitis obliterans [Buerger's disease]

== ENCOUNTER → 2023-03-02 | Outpatient (CLI) | payer MEDICARE, MEDICAID ==
[2023-03-02 09:09] LABS: ALBUMIN 3.3 G/DL (3.2-5.2); BILIRUBIN,DIRECT 0.3 MG/DL (<0.4); BILIRUBIN,TOTAL 0.9 MG/DL (0.3-1.2); TOTAL PROTEIN 6.7 G/DL (5.7-8.2)
[2023-03-02 09:10] LABS: TOTAL 25(OH) VITAMIN D 88.4 NG/ML (20.0-100.0)
== END ==
LOC: M LAB 07:51
PROVIDERS: ATTEND Physician Assistant
DX: E55.9 Vitamin D deficiency, unspecified (principal); R74.8 Abnormal levels of other serum enzymes

== ENCOUNTER → 2023-03-04 | Outpatient (REF) | payer MEDICARE, MEDICAID | LOC: M SFHCADAM 14:35 | PROVIDERS: ATTEND Physician Assistant | DX: R74.8 Abnormal levels of other serum enzymes (principal); Z86.19 Personal history of other infectious and parasitic diseases ==

== ENCOUNTER → 2023-04-01 | Outpatient (CLI) | payer MEDICARE, MEDICAID | LOC: M RAD 13:46 | PROVIDERS: ATTEND Physician Assistant | DX: Z12.2 Encounter for screening for malignant neoplasm of respiratory organs (principal); F17.211 Nicotine dependence, cigarettes, in remission; M47.9 Spondylosis, unspecified; K44.9 Diaphragmatic hernia without obstruction or gangrene; M43.9 Deforming dorsopathy, unspecified ==

== ENCOUNTER → 2023-08-26 | Outpatient (CLI) | payer MEDICARE, MEDICAID ==
[2023-08-26 15:46] LABS: BASO # 0.1 10^3/uL (0.0-0.2); BASO % 0.8 % (0.0-1.0); EOS # 0.1 10^3/uL (0.0-0.5); EOS % 1.4 % (0.0-3.0); HEMATOCRIT 44.8 % (36.0-47.0); HEMOGLOBIN 14.3 g/dl (12.0-15.5); LYMPH # 2.4 10^3/uL (1.5-5.0); LYMPH % 33.1 % (24.0-44.0); MEAN CORPUSCULAR HEMOGLOBIN 27.9 pg (27.0-33.0); MEAN CORPUSCULAR HGB CONC 31.9 g/dl (32.0-36.5); MEAN CORPUSCULAR VOLUME 87.5 fl (80.0-96.0); MONO # 0.5 10^3/uL (0.0-0.8); MONO % 6.6 % (2.0-8.0); NEUTROPHILS # 4.2 10^3/uL (1.5-8.5); PLATELET COUNT, AUTOMATED 267 10^3/uL (150-450); RED BLOOD COUNT 5.12 10^6/uL (4.00-5.40); WHITE BLOOD COUNT 7.3 10^3/uL (4.0-10.0)
[2023-08-26 16:19] LABS: HEPATITIS B SURFACE ANTIBODY POSITIVE (POSITIVE)
[2023-08-30 21:07] LABS: HEPATITIS A IgG TOTAL Positive (Negative); HEPATITIS B CORE ANTIBODY IGG Positive (Negative); HEPATITIS C QUANTITATION 1550000 IU/mL (.); HEPATITIS C VIRUS GENOTYPE 1b (.)
== END ==
LOC: M PLALAB 12:56
PROVIDERS: ATTEND Internal Medicine Infectious Disease
DX: B18.2 Chronic viral hepatitis C (principal)

== ENCOUNTER → 2023-09-06 | Outpatient (CLI) | payer MEDICARE, MEDICAID | LOC: M WHC 08:57 | PROVIDERS: ATTEND Internal Medicine Infectious Disease | DX: B18.2 Chronic viral hepatitis C (principal); K76.0 Fatty (change of) liver, not elsewhere classified ==

== ENCOUNTER → 2023-12-01 | Outpatient (CLI) | payer MEDICARE, MEDICAID ==
[2023-12-01 14:51] LABS: ALBUMIN 3.5 G/DL (3.2-5.2); ALKALINE PHOSPHATASE 81 U/L (46-116); ALT/SGPT 23 U/L (7.0-40); AST/SGOT 26 U/L (<34); BILIRUBIN,TOTAL 0.5 MG/DL (0.3-1.2); BLOOD UREA NITROGEN 13 MG/DL (9-23); CALCIUM LEVEL 9.1 MG/DL (8.3-10.6); CARBON DIOXIDE LEVEL 27 MMOL/L (20-31); CHLORIDE LEVEL 105 MMOL/L (98-107); CREATININE FOR GFR 0.77 MG/DL (0.55-1.30); GLOMERULAR FILTRATION RATE > 60.0 (>39); GLUCOSE, FASTING 82 MG/DL (74-106); POTASSIUM SERUM 4.1 MMOL/L (3.5-5.1); SODIUM LEVEL 136 MMOL/L (136-145); TOTAL PROTEIN 6.9 G/DL (5.7-8.2)
== END ==
LOC: M LAB 13:37
PROVIDERS: ATTEND Internal Medicine Infectious Disease
DX: B18.2 Chronic viral hepatitis C (principal)

== ENCOUNTER → 2024-02-28 | Outpatient (CLI) | payer MEDICARE, MEDICAID ==
[2024-02-28 11:44] LABS: BLOOD UREA NITROGEN 17 MG/DL (9-23); CALCIUM LEVEL 8.9 MG/DL (8.3-10.6); CARBON DIOXIDE LEVEL 24 MMOL/L (20-31); CHLORIDE LEVEL 109 MMOL/L (98-107); CREATININE FOR GFR 0.88 MG/DL (0.55-1.30); GLOMERULAR FILTRATION RATE > 60.0 (>39); GLUCOSE, FASTING 82 MG/DL (74-106); POTASSIUM SERUM 4.1 MMOL/L (3.5-5.1); SODIUM LEVEL 141 MMOL/L (136-145)
== END ==
LOC: M LAB 10:23
PROVIDERS: ATTEND Physician Assistant
DX: I10 Essential (primary) hypertension (principal)

== ENCOUNTER → 2024-03-01 | Outpatient (CLI) | payer MEDICARE, MEDICAID ==
[~2024-03-01] MED LIST changes: +ISOVUE-370 76% 100ML VIAL ONE
== END ==
LOC: M PLAIMG 09:56
PROVIDERS: ATTEND Physician Assistant
DX: R10.30 Lower abdominal pain, unspecified (principal); K59.00 Constipation, unspecified
CPT/HCPCS: 74174; Q9967

== ENCOUNTER → 2024-03-13 | Outpatient (REF) | payer MEDICARE, MEDICAID ==
[~2024-03-13] MED LIST changes: -ISOVUE-370 76% 100ML VIAL ONE
[2024-03-13 18:48] LABS: ALBUMIN 3.8 G/DL (3.2-5.2); BILIRUBIN,DIRECT 0.2 MG/DL (<0.4); BILIRUBIN,TOTAL 0.6 MG/DL (0.3-1.2); TOTAL PROTEIN 7.1 G/DL (5.7-8.2)
[2024-03-15 18:08] LABS: HEPATITIS C QUANTITATION HCV Not Detected IU/mL (.)
== END ==
LOC: M SFHCADAM 14:27
PROVIDERS: ATTEND Internal Medicine Infectious Disease
DX: B18.2 Chronic viral hepatitis C (principal)

== ENCOUNTER → 2024-07-04 | Outpatient (CLI) | payer MEDICARE, MEDICAID | LOC: M RAD 14:31 | PROVIDERS: ATTEND Physician Assistant | DX: Z12.2 Encounter for screening for malignant neoplasm of respiratory organs (principal); F17.211 Nicotine dependence, cigarettes, in remission; I70.0 Atherosclerosis of aorta; K44.9 Diaphragmatic hernia without obstruction or gangrene ==

== ENCOUNTER → 2024-09-04 | Outpatient (CLI) | payer MEDICARE, MEDICAID | LOC: M WHC 13:37 | PROVIDERS: ATTEND Physician Assistant | DX: Z12.31 Encounter for screening mammogram for malignant neoplasm of breast (principal); Z13.820 Encounter for screening for osteoporosis; M85.89 Other specified disorders of bone density and structure, multiple sites; R92.313 Mammographic fatty tissue density, bilateral breasts ==

== ENCOUNTER → 2025-02-22 | Outpatient (CLI) | payer MEDICARE, MEDICAID | LOC: M RAD 14:11 | PROVIDERS: ATTEND Physician Assistant | DX: E78.5 Hyperlipidemia, unspecified (principal); I65.23 Occlusion and stenosis of bilateral carotid arteries ==

== ENCOUNTER → 2025-04-26 | Outpatient (REF) | payer MEDICARE, MEDICAID ==
[2025-04-26 17:59] LABS: BASO # 0.1 10^3/uL (0.0-0.2); BASO % 1.0 % (0.0-1.0); EOS # 0.2 10^3/uL (0.0-0.5); EOS % 1.8 % (0.0-3.0); LYMPH # 3.0 10^3/uL (1.5-5.0); LYMPH % 35.7 % (24.0-44.0); MONO # 0.7 10^3/uL (0.0-0.8); MONO % 8.4 % (2.0-8.0); NEUTROPHILS # 4.4 10^3/uL (1.5-8.5); NEUTROPHILS % 53.0 % (36.0-66.0); PLATELET COUNT, AUTOMATED 290 10^3/uL (150-450)
[2025-04-26 18:05] LABS: ALT/SGPT 35 U/L (7.0-40); AST/SGOT 37 U/L (<34); CALCIUM LEVEL 9.3 MG/DL (8.3-10.6); CARBON DIOXIDE LEVEL 27 MMOL/L (20-31); CHLORIDE LEVEL 103 MMOL/L (98-107); CHOLESTEROL LEVEL 128 MG/DL (<200); CHOLESTEROL RISK RATIO 3.35 (<5); CREATININE FOR GFR 0.85 MG/DL (0.55-1.30); GLOMERULAR FILTRATION RATE 73.2 (>39); LDL CHOLESTEROL 64.9 MG/DL (<100); NON-HDL-C 89.9 MG/DL; POTASSIUM SERUM 3.8 MMOL/L (3.5-5.1); SODIUM LEVEL 142 MMOL/L (136-145); TRIGLYCERIDES LEVEL 125 MG/DL (<150)
[2025-04-26 18:07] LABS: FREE T4 1.09 NG/DL (0.89-1.76); VITAMIN B12 LEVEL 610 PG/ML (211-911)
[2025-04-26 18:08] LABS: TOTAL 25(OH) VITAMIN D 51.2 NG/ML (20.0-100.0)
[2025-04-26 18:52] LABS: ESTIMATED AVERAGE GLUCOSE 103.0 MG/DL (60-110)
== END ==
LOC: M SFHCADAM 14:05
PROVIDERS: ATTEND Physician Assistant
DX: K14.0 Glossitis (principal); I77.1 Stricture of artery; I73.9 Peripheral vascular disease, unspecified; I73.1 Thromboangiitis obliterans [Buerger's disease]; F17.211 Nicotine dependence, cigarettes, in remission; E78.5 Hyperlipidemia, unspecified; E55.9 Vitamin D deficiency, unspecified; I10 Essential (primary) hypertension; R60.0 Localized edema; M25.571 Pain in right ankle and joints of right foot; R06.02 Shortness of breath; Z79.899 Other long term (current) drug therapy

== ENCOUNTER → 2025-04-26 | Outpatient (CLI) | payer MEDICARE, MEDICAID | LOC: M ADAMS 14:25 | PROVIDERS: ATTEND Physician Assistant | DX: R60.0 Localized edema (principal) ==

== ENCOUNTER → 2025-06-08 | Outpatient (CLI) | payer MEDICARE, MEDICAID | LOC: M PLARAD 08:41 | PROVIDERS: ATTEND Physician Assistant | DX: M25.571 Pain in right ankle and joints of right foot (principal) ==

== ENCOUNTER → 2025-07-05 | Outpatient (CLI) | payer MEDICARE, MEDICAID | LOC: M RAD 12:45 | PROVIDERS: ATTEND Physician Assistant | DX: Z12.2 Encounter for screening for malignant neoplasm of respiratory organs (principal); F17.211 Nicotine dependence, cigarettes, in remission ==